=== PATIENT | male | born 1995 | race Hispanic/Latino ===

== ENCOUNTER 2021-05-17 18:54 | Emergency (ER) | payer OTHER, SELFPAY ==
[2021-05-17] MEDS ORDERED: Boostrix 0.5 ML (Tdap) VIAL ONE (19:30)
== END 2021-05-17 19:46 | disposition home or self-care (01) ==
LOC: CSHERS 18:54
DX: S51.811A Laceration without foreign body of right forearm, initial encounter (principal); W26.8XXA Contact with other sharp object(s), not elsewhere classified, initial encounter; Y92.69 Other specified industrial and construction area as the place of occurrence of the external cause
CPT/HCPCS: 12001; 90471; 90715

== ENCOUNTER → 2021-05-27 10:18 | Emergency (ER) | payer OTHER, SELFPAY | END | disposition home or self-care (01) | LOC: CSHERS 10:18 | DX: S41.111D Laceration without foreign body of right upper arm, subsequent encounter (principal) ==